=== PATIENT | female | born 1970 | race African-American/Black ===

== ENCOUNTER 2023-03-13 14:41 | Emergency (ER) | payer OTHER, SELFPAY ==
--- NOTE | ~2023-03-13 | XR_ITS ---
EXAMINATION: XR chest 2V Exam Date/Time: 03/13/2023 16:20 MACHINE HEEL SEAT LASTER HISTORY: SOB, COUGH [id number], HX ASTHMA Comparison: None. RESULT: Lines, tubes, and devices: None. Lungs and pleura: Moderate reticular opacities and peribronchial cuffing. Cardiomediastinal silhouette: Stable. Other: No acute osseous or upper abdominal finding. IMPRESSION: Pulmonary opacities may represent bronchiolitis, as can be seen with atypical infection, asthma, aspi ration, and small airways disease. Reviewed, dictated and finalized at location [facility]. INE HE[employer] SEAT LASTER IMPRESSION: Pulmonary opacities may represent bronchiolitis, as can be seen with atypical i nfection, asthma, aspiration, and small airways disease.
[2023-03-13 15:04] VITALS: BP 148/80; PULSE 92; RESP 16; TEMP 36.8; O2SAT 93
--- NOTE | 2023-03-13 15:10 | ECG_ITS ---
Measurements Intervals [place] Rate: 80 P: 56 CT: 129 QRS: 32 QRSD: 103 T: 144 QT: 369 QTc: 427 Interpretive Statements SINUS RHYTHM ST-T WAVE ABNORMALITY IN LAT/HIGH LAT LEADS- CONSIDER ISCHEMIA BASELINE ARTIFACT- I, II, III, AVR, AVL, V1, V4 ABNORMAL ECG NO PREVIOUS ECG AVAILABLE FOR COMPARISON Electronically Signed On 03-13-2023 18:59:59 LINE ERECTOR APPRENTICE by Jhonny Mcleod D.O.
[2023-03-13 15:40] LABS: Basophils Absolute Auto 0.1 K/mm3 (0.0-0.1); Basophils Percent Auto 0.7 % (0.2-1.2); Eosinophils Absolute Auto 1.5 K/mm3 (0-0.3); Eosinophils Percent Auto 13.7 % (0-4.4); Hematocrit 43.7 % (37.0-47.0); Hemoglobin 14.5 g/dL (12.0-15.0); Immature Granulocyte Absolute 0.03 K/mm3 (0.00-0.031); Immature Granulocyte Percent A 0.3 % (0-0.5); Lymphocytes Absolute Auto 2.71 K/mm3 (0.9-3.2); Mean Corpuscular HGB Conc 33.2 g/dl (32-36); Mean Corpuscular Hemoglobin 33.8 pg (26-34); Mean Corpuscular Volume 101.9 fl (80-100); Mean Platelet Volume 10.3 fl (7.4-10.4); Monocytes Absolute Auto 0.9 K/mm3 (0.1-0.6); Monocytes Percent Auto 7.9 % (2.6-8.5); Neutrophils Absolute Auto 5.7 K/mm3 (1.3-6.7); Neutrophils Percent Auto 52.4 % (45.5-73.1); Platelet Count Result 261 k/mm3 (150-375); Red Blood Count 4.29 M/mm3 (4.2-5.4); Red Cell Distribution Width 11.6 % (11.5-14.5); White Blood Count 10.9 K/mm3 (4.5-10.0)
[2023-03-13 15:55] LABS: Alanine Aminotransferase 17 U/L (6-35); Albumin Level 4.5 g/dL (3.5-5.1); Alkaline Phosphatase 81 U/L (38-126); Anion Gap 10 mmol/L (8-16); Aspartate Amino Transferase 29 U/L (14-36); Bilirubin,Total 1.1 mg/dL (0.2-1.3); Blood Urea Nitrogen 27 mg/dL (7-17); Calcium 9.6 mg/dL (8.4-10.2); Carbon Dioxide 29 mmol/L (22-30); Chloride 102 mmol/L (98-107); Estimated Glomerular Filt Rate 26; Glucose 130 mg/dL (65-110); Potassium 3.7 mmol/L (3.4-5.0); Sodium 141 mmol/L (137-145)
[2023-03-13 16:28] LABS: Influenza A QL RT-PCR Negative (Negative); Influenza B QL RT-PCR Negative (Negative); RSV RNA, RT-PCR Negative (Negative); SARS-CoV-2 RNA PCR Negative (Negative)
[2023-03-13 17:38] VITALS: PULSE 85; RESP 21; O2SAT 93
[2023-03-13 17:39] VITALS: BP 125/91; PULSE 81; RESP 22; O2SAT 93
--- NOTE | 2023-03-13 17:43 | ED.URI ---
HPI - URI/Sore Throat General Chief Complaint: Upper Respiratory Infection Stated Complaint: cough Time Seen by Provider: 03/13/23 17:15 Source: patient Mode of arrival: ambulatory Limitations: no limitations History of Present Illness HPI Narrative: This is a 52 year old female that presents to the ER for cold symptoms present over the last 2 weeks. Reports a lingering cough. She has been on a Z pack with little relief. Reports chest discomfort with coughing and shortness of breath. Reports history of asthma. Her Albuterol inhaler has not been helping much. Denies fevers. Related Data Allergies Allergy/AdvReac Type Severity Reaction Status Date / Time No Known Allergies Allergy Verified 03/13/23 18:06 Review of Systems Review of Systems: CONSTITUTIONAL: Denies fever ENT: Reports congestion CARDIOVASCULAR: Reports chest pain. Denies edema. RESPIRATORY: Reports cough and dyspnea. All systems reviewed & are unremarkable except as noted in HPI and below PMFSH Past Medical History Medical History (Updated 03/13/23 @ 19:11 by Seble Monge PA-C) History of asthma History of sleep apnea Social History Social History (Updated 03/13/23 @ 17:53 by Seble Monge PA-C) Substance use: never Exam Narrative: GENERAL: Well-appearing, well-nourished, and in no acute distress. HEAD: Normocephalic, atraumatic. EYES: EOMI. ENT: Nares clear, no rhinorrhea or epistaxis. Mucous membranes moist. Oropharynx without tonsillar hypertrophy exudate or other lesions. NECK: Supple. No adenopathy or masses. CHEST: No respiratory distress. Lung sounds diminished with expiratory wheezing. No rales or rhonchi HEART: Regular rate and rhythm. No murmur heard. Normal peripheral pulses. EXTREMITIES: Normal range of motion. No edema. SKIN: Warm, dry, no rash. NEURO: No focal deficits. Alert and oriented x3. PSYCH: Normal mood and affect Course Course Emergency Course: Patient updated on workup. Re-evaluated. Reports feeling much better, is ready for discharge home. Lung sounds improved after nebulizer treatment Vital Signs Vital signs: Vital Signs Temperature 98.2 F 03/13/23 15:04 Pulse Rate 92 03/13/23 15:04 Respiratory Rate 16 03/13/23 15:04 Blood Pressure 148/80 H 03/13/23 15:04 Pulse Oximetry 93 03/13/23 15:04 Oxygen Delivery Room Air 03/13/23 15:04 Temperature 97.6 F 03/13/23 18:58 Pulse Rate 72 03/13/23 18:58 Respiratory Rate 14 03/13/23 18:58 Blood Pressure 128/91 H 03/13/23 18:58 Pulse Oximetry 96 03/13/23 18:58 Oxygen Delivery Room Air 03/13/23 18:58 MDM - URI/Sore Throat MDM Narrative Medical decision making narrative: Patient presents to the emergency department for a cough ongoing over the last couple of weeks. Has been treated with a Z-Rogelio with little relief. She is afebrile and nontoxic appearing. Lung sounds are diminished with wheezing initially. Oxygen saturation has been normal on room air. CBC with leukocytosis to 10.9. Metabolic panel with creatinine of 2. Unsure if this is her baseline as I do not have any previous blood work. She does report she believes this sounds familiar that her creatinine is at this number. Was instructed she should follow up with her primary doctor for this for repeat blood work. Influenza, RSV, and COVID screens are negative. EKG with nonspecific T-wave changes. Her baseline troponin is negative. She reports chest pain that has been ongoing with coughing. Patient updated on workup. Re-evaluated. Reports feeling much better, is ready for discharge home. Lung sounds improved after nebulizer treatment. She was instructed to have close follow-up with her primary provider. She was given warnings to return to the ER Differential Diagnosis Differential diagnosis: Likely upper respiratory infection, viral infection, bronchitis, influenza and other (COVID, pneumonia, asthma exacerbation) Lab Data Attestation: I reviewed the pat
[2023-03-13 17:45] VITALS: PULSE 83; RESP 21; O2SAT 98
[2023-03-13 17:46] VITALS: BP 146/89; PULSE 75; RESP 21; O2SAT 97
[2023-03-13] MEDS: methylPREDNISolone SOD SUCC 125 MG VIAL IV PUSH (18:07)
[2023-03-13] MEDS: ALBUTEROL SULFATE NEB 2.5 MG/3 ML INH INHALATION (18:11)
[2023-03-13] MEDS: IPRATROPIUM BR 0.02% INH SOLN 0.5 MG/2.5 ML VIAL INHALATION (18:11)
--- NOTE | 2023-03-13 18:52 | ECG_ITS ---
Measurements Intervals [place] Rate: 68 P: 51 ND: 138 QRS: 22 QRSD: 103 T: 139 QT: 389 QTc: 416 Interpretive Statements SINUS RHYTHM ST-T WAVE ABNORMALITY IN ANTEROLAT/HIGH LAT LEADS- CONSIDER ISCHEMIA BASELINE ARTIFACT- I, III, AVR, AVL, V2 ABNORMAL ECG COMPARED TO ECG 03/13/2023 15:26:18 NO SIGNIFICANT CHANGES Electronically Signed On 03-14-2023 12:49:34 FORMULA ROOM WORKER by Jhonny Mcleod D.O.
[2023-03-13 18:58] VITALS: BP 128/91; PULSE 72; RESP 14; TEMP 36.4; O2SAT 96; O2SAT 97
[2023-03-13 18:58] LABS: Troponin I < 0.012 ng/mL (0.000-0.034)
== END 2023-03-13 19:19 | disposition home or self-care (01) ==
PROVIDERS: Student in an Organized Health Care Education/Training Program; Emergency Provider Physician Assistant
DX: J45.901 Unspecified asthma with (acute) exacerbation (principal); Z20.822 Contact with and (suspected) exposure to COVID-19
CPT/HCPCS: 36415; 71046; 80053; 84484; 85025; 87637; 93005; 94640; 96374; 99284; J2930